=== PATIENT | male | born 1965 | race Caucasian/White ===

== ENCOUNTER 2016-09-22 19:46 | Emergency (ER) | payer OTHER ==
[~2016-09-22] VITALS: Ht 185.4 cm; Wt 96.2 kg
[2016-09-22 19:54] VITALS: TEMP 36.8; Ht 185.4 cm; Wt 96.2 kg
[2016-09-22] MEDS ORDERED: ASPI81TA28 PO (20:33)
[2016-09-22] MEDS ORDERED: MULT-506 PO (20:33)
[2016-09-22 20:40] LABS: HEMATOCRIT 49.7 % (42-52); MEAN CELL VOLUME 84.1 fL (80-100); MEAN CORPUSCULAR HEMOGLOBIN 29.6 pg (25-34); MEAN CORPUSCULAR HGB CONC 35.2 g/dl (32-36); MEAN PLATELET VOLUME 10.4 fL (7.4-10.4); PLATELET COUNT 203 K/uL (130-400); RED BLOOD COUNT 5.91 M/uL (4.7-6.1); WHITE BLOOD COUNT 9.22 K/uL (4.8-10.8)
[2016-09-22 20:41] VITALS: O2SAT 100
[2016-09-22 20:50] LABS: PARTIAL THROMBOPLASTIN RATIO 1.1; PROTHROMBIN TIME (PATIENT) 10.7 SECONDS (9.0-12.0)
--- NOTE | 2016-09-22 21:02 | DIAGNOSTIC IMAGING REPORT ---
CHEST ONE VIEW PORTABLE CLINICAL HISTORY: chest pressure CHEST HEAVINESS, FATIGUE. LIGHTHEADEDNESS. COMPARISON STUDY: No previous studies for comparison. FINDINGS: The heart is mildly enlarged. A prosthetic valve is visualized. There is no failure. There is no focal pulmonary consolidation. There are no pleural effusions.[ IMPRESSION: No active disease in the chest. Electronically signed by: Jason De Jesus M.D. 09/22/2016 9:01 PM Dictated Date/Time: 09/22/2016 9:01 PM
[2016-09-22 21:38] LABS: ALB/GLOB RATIO 1.3 (0.9-2); ALKALINE PHOSPHATASE 78 U/L (45-117); ALT/SGPT 58 U/L (12-78); AST/SGOT 37 U/L (15-37); BLOOD UREA NITROGEN 15 mg/dl (7-18); BUN/CREATININE RATIO 13.3 (10-20); CALCIUM 8.8 mg/dl (8.5-10.1); CARBON DIOXIDE 27 mmol/L (21-32); CHLORIDE 107 mmol/L (98-107); CKMB/CK RATIO 0.8 (0-3.0); GLUCOSE 95 mg/dl (70-99); POTASSIUM 4.2 mmol/L (3.5-5.1); SODIUM 143 mmol/L (136-145)
[2016-09-23 00:19] VITALS: BP 166/89; PULSE 79; O2SAT 99
--- NOTE | 2016-09-23 01:09 | EMERGENCY ROOM VISIT NOTE ---
History Report prepared by Charito: Tre Rollins Under the Supervision of: Dr. Pedro Luis Villarreal D.O. First contact with patient: 20:48 Chief Complaint: CARDIAC ASSESSMENT Stated Complaint: LOSS OF ENERGY,CHEST HEAVINESS,LIGHTHEAD 4DAYS AGO Nursing Triage Summary: pt reports Mon. while sitting at desk had an episode of light headed dizziness this passed. then during the week I have had intermittent chest tightness or spasm with dizziness , denies NV or sob reports hx of mitral valve repair 5 yrs ago History of Present Illness The patient is a 50 year old male who presents to the Emergency Room with complaints of intermittent weakness beginning 4 days ago. The patient states that he was sitting at his desk at home and became lightheaded suddenly with heavy legs. He reports that he also experiences intermittent fatigue, chest heaviness, left sided muscle spasms, and tingling sensation in this fingers. The patient notes that he has only experienced the lightheadedness and heavy legs once. He reports that he was symptom free yesterday. The patient states that exertion does not change his discomfort and deep breathing helps. He notes that he typically experiences his discomfort when he thinks about it and gets stressed out. The patient denies jaw and arm pain, shortness of breath, diaphoresis, and nausea. He also denies having DM, hypertension, heart disease, coronary disease, recent surgery, long trips, cyanosis legs, previous blood, hemoptysis, history cancer and smoking. 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 Source of History: patient Onset: 4 days ago Position: other (global) Quality: other (weakness) Timing: intermittent Modifying Factors (Relieving): breathing (deeply) Associated Symptoms: + fatigue, No diaphoresis, No SOB, No nausea Note: Associated symptoms: chest heaviness, left sided muscle spasms, and tingling sensation in this fingers. The patient denies jaw and arm pain and leg swelling Review of Systems See HPI for pertinent positives & negatives. A total of 10 systems reviewed and were otherwise negative. Family History Patient reports no known family medical history. Social History Smoking Status: Current Some Day Smoker Marital Status: single Current/Historical Medications Scheduled Aspirin (Aspirin Ec), 81 MG PO DAILY Multivitamin (Multivitamin), 1 TAB PO DAILY Allergies Coded Allergies: No Known Allergies (Unverified , 09/22/16) Physical Exam Vital Signs Date Time Temp Pulse Resp B/P (MAP) Pulse Ox O2 Delivery O2 Flow Rate FiO2 09/23/16 00:19 79 18 166/89 99 09/22/16 23:24 74 19 137/93 100 Room Air 09/22/16 22:07 141/88 100 09/22/16 22:00 77 16 09/22/16 20:45 84 09/22/16 20:41 100 Room Air 09/22/16 20:41 100 Room Air 09/22/16 20:10 100 Room Air 09/22/16 19:54 36.8 90 18 154/96 100 Room Air Physical Exam GENERAL: alert, anxious appearing sitting up in bed, disheveled EYE EXAM: normal conjunctiva OROPHARYNX: no exudate, no erythema, lips, buccal mucosa, and tongue normal and mucous membranes are moist NECK: supple, no nuchal rigidity, no adenopathy, non-tender LUNGS: Clear to auscultation. Normal chest wall mechanics HEART: Systolic ejection murmur, S1 normal and S2 normal ABDOMEN: abdomen soft, non-tender, normo-active bowel sounds, no masses, no rebound or guarding. BACK: Back is symmetrical on inspection and there is no deformity, no midline tenderness, no CVA tenderness. SKIN: no rashes and no bruising UPPER EXTREMITIES: upper extremities are grossly normal. Radial pulses equal bilaterally LOWER EXTREMITIES: No pitting edema. Calves non-tender and equal bilaterally NEURO EXAM: Normal sensorium, cranial nerves II-XII intact, normal speech, no weakness of arms, no weakness of legs. Medical Decision & Procedures ER Provider Diagnostic Interpretation: Radiology results as stated below per my review and the radiologist's interpretation: CHEST ONE VIEW PORTABLE CLINICAL HISTORY: chest pressure CHEST HEAVINESS, FATIGUE. LIGHTHEADEDNESS. COMPARISON STUDY: No previous studies for comparison. FINDINGS: The heart is mildly enlarged. A prosthetic valve is visualized. There is no failure. There is no focal pulmonary consolidation. There are no pleural effusions.[ IMPRESSION: No active disease in the chest. Electronically signed by: Jason De Jesus M.D. 09/22/2016 9:01 PM Dictated Date/Time: 09/22/2016 9:01 PM Laboratory Results 09/22/16 20:30 09/22/16 20:30 Test 09/22/16 20:30 09/22/16 20:37 09/22/16 23:29 Red Blood Count 5.91 M/uL (4.7-6.1) Mean Corpuscular Volume 84.1 fL (80-100) Mean Corpuscular Hemoglobin 29.6 pg (25-34) Mean Corpuscular Hemoglobin Concent 35.2 g/dl (32-36) RDW Standard Deviation 40.5 fL (36.4-46.3) RDW Coefficient of Variation 13.3 % (11.5-14.5) Mean Platelet Volume 10.4 fL (7.4-10.4) Prothrombin Time 10.7 SECONDS (9.0-12.0) Prothromb Time International Ratio 1.0 (0.9-1.1) Activated Partial Thromboplast Time 27.5 SECONDS (21.0-31.0) Partial Thromboplastin Ratio 1.1 D-Dimer < 190 ug/L FEU (0-500) Anion Gap 9.0 mmol/L (3-11) Est Creatinine Clear Calc Drug Dose 99.3 ml/min Estimated GFR () 90.9 Estimated GFR (Non- 78.4 BUN/Creatinine Ratio 13.3 (10-20) Calcium Level 8.8 mg/dl (8.5-10.1) Total Bilirubin 0.8 mg/dl (0.2-1) Aspartate Amino Transf (AST/SGOT) 37 U/L (15-37) Alanine Aminotransferase (ALT/SGPT) 58 U/L (12-78) Alkaline Phosphatase 78 U/L (45-117) Total Creatine Kinase 88 U/L (39-308) Creatine Kinase MB 0.7 ng/ml (0.5-3.6) Creatine Kinase MB Ratio 0.8 (0-3.0) Total Protein 7.9 gm/dl (6.4-8.2) Albumin 4.5 gm/dl (3.4-5.0) Globulin 3.4 gm/dl (2.5-4.0) Albumin/Globulin Ratio 1.3 (0.9-2) Bedside Troponin I < 0.030 ng/ml (0-0.045) Troponin I < 0.015 ng/ml (0-0.045) Laboratory results per my review. ECG Indication: weakness Rate (beats per minute): 89 Rhythm: sinus rhythm Findings: no ectopy, other (early R-wave progression) Comparison ECG Date: no prior available ED Course ED COURSE: Vital signs were reviewed and showed hypertension The patients medical record was reviewed The above diagnostic studies were performed and reviewed. ED treatments and interventions as stated above. 2057: The patient was evaluated in room C04. A complete history and physical examination was performed. 2251: I reevaluated the patient. He could not make a decision to receive further treatment as an in patient or follow up as an outpatient. I explained the risks and benefits for both options. I also discussed that his heart score was less than 3. 0000: Upon reevaluation, the patient is resting. I discussed my findings with the patient and he understands and agrees with the treatment plan. I discussed that he is at low risk by his heart score again. He preferred to follow up as an outpatient. Based on the patients age, coexisting illnesses, exam and lab findings the decision to treat as an outpatient was made. The patient remained stable while under my care. The patient appeared well at the time of discharge. Medical Decision Differential diagnoses includes but is not limited to acute coronary syndrome, myocardial infarction, pericarditis, pulmonary embolus, aortic dissection, pneumonia, pneumothorax, musculoskeletal, shingles, esophageal. Patient is a 50-year-old male who presents the ER with intermittent chest pain over the past week. Pain is not worsened with exertion. He has no shortness of breath, arm or jaw pain. Patient denies any PE risk factors. He has no risk factors for CAD. He does have a history of a mitral valve repair. CBC was unremarkable. Troponins were negative for over 3 hours with pain that has been present over the past 8 hours. D-dimer was negative. This is not consistent with dissection. EKG was unremarkable. Chest x-ray was normal. Patient per heart score is a low risk. I informed him of this. He preferred to be discharged to follow-up as an outpatient following informed care/decision making. Explained the risk and benefits of admission. Patient has his pulse at bedside during the decision making process. Patient requests to be discharged and will follow-up with his PCP on Sunday. Discussed with care management and they will help schedule an appointment on Sunday for him. Discussed with Pt concerning signs and symptoms to watch out for. Pt was instructed to follow up with their PCP and discussed with the patient their option to return to the ED at anytime for persistent or worsening symptoms. The appropriate anticipatory guidance and out-patient management, including indications for return to the emergency department, were explained at length to the patient and understood. Impression Primary Impression: Chest pain Scribe Attestation The scribe's documentation has been prepared under my direction and personally reviewed by me in its entirety. I confirm that the note above accurately reflects all work, treatment, procedures, and medical decision making performed by me. Departure Information Dispostion Home / Self-Care Referrals Neftali Vieyra M.D. (PCP) Forms IMPORTANT VISIT INFORMATION Patient Instructions Chest Pain - [facility], My [facility] Additional Instructions Please follow up with your primary care doctor with in the next 24 hours. Any worsening of your symptoms, please return to the ED immediately. This includes chest pain, shortness of breath, on pain, jaw pain, diaphoresis, or any other concerning signs or symptoms from your standpoint. Problem Qualifiers Primary Impression: Chest pain Chest pain type: unspecified Qualified Codes: R07.9 - Chest pain, unspecified
== END 2016-09-23 00:19 | disposition home or self-care (01) ==
LOC: C.EDB 19:47 → C.EDC 09-23 00:19
DX: R07.9 Chest pain, unspecified (principal); R42 Dizziness and giddiness; F17.200 Nicotine dependence, unspecified, uncomplicated; Z79.82 Long term (current) use of aspirin; Z98.890 Other specified postprocedural states

== ENCOUNTER → 2016-09-25 | Outpatient (CLI) | payer OTHER ==
[~2016-09-25] MED LIST: ASPI81TA28 PO; CHOL1000 PO; COEN100C15 PO; MISC1CAP60 PO; MULT-506 PO; MULT-513 PO; MULT-704 PO; OMEG10007 PO
[2016-09-25 14:03] LABS: ESTIMATED AVERAGE GLUCOSE 105 mg/dl; HA1C FLAG Normal (Normal)
[2016-09-25 14:34] LABS: LYME DISEASE AB IGG NEG (NEG)
[2016-09-25 14:37] LABS: LYME DISEASE AB IGM NEG (NEG)
== END | disposition home or self-care (01) ==
LOC: C.LAB1850 12:26
PROVIDERS: ATTEND Internal Medicine
DX: Z13.1 Encounter for screening for diabetes mellitus (principal); R53.83 Other fatigue

== ENCOUNTER 2016-12-25 20:45 | Emergency (ER) | payer OTHER ==
[~2016-12-25] VITALS: Ht 185.4 cm; Wt 91.7 kg
[~2016-12-25 20:45] MED LIST changes: -CHOL1000 PO; -COEN100C15 PO; -MISC1CAP60 PO; -MULT-513 PO; -MULT-704 PO; -OMEG10007 PO
[2016-12-25 20:49] VITALS: TEMP 37.2; Ht 185.4 cm; Wt 91.7 kg
[2016-12-25 21:02] VITALS: O2SAT 99
--- NOTE | 2016-12-25 21:16 | EMERGENCY ROOM VISIT NOTE ---
History Report prepared by Charito: Jeromy Meeks Under the Supervision of: Dr. Neftali Ramos D.O. First contact with patient: 20:54 Chief Complaint: CHEST PAIN Stated Complaint: CHEST DISCOMFORT,TIREDNESS,LIGHTHEADED History of Present Illness The patient is a 51 year old male who presents to the Emergency Room with complaints of intermittent chest pain that started six days. He describes the pain as a pressure and rates his pain as a 1/10 in severity. The patient sates that the pain is sometimes on the left side and other times on the right. He states that the pain is mostly in the middle. The patient states that at time, sleeping helps alleviate his pressure. He states that the pain was mild yesterday and two days ago, but reports that today the pain was moderate. The patient states that he had multiple medical discussions that triggered stress. He states that he does not wake up with the chest pain, but states that throughout the day the pain returns. The patient also reports that he has had three episodes of lightheadedness that comes and goes. He states that the pain is resolved now. He admits that he was in the ED in September where he admits he had lab work done, but denies a stress test. The patient states that he followed up with his PCP. He states that the pain lasted for 7-10 days but resolved. The patient states that around this time, he had increased stress from moving houses. He states that in the first week of November, the symptoms returned and lasted for almost a week again. He admits to a mitral valve repair in 2011 and reports that he had a cardiac catheterization done. The patient states that he follows up with Physical Science Technician and states that he has an echo in the beginning of January. He states that he drinks about two drinks per month and three cigars per year. The patient denies edema to his lower extremities, weight loss, SOB, and abdominal pain. Source of History: patient Onset: six days ago Position: chest Symptom Intensity: 1/10 Quality: pressure Timing: intermittent Modifying Factors (Worsening): other (sleep) Associated Symptoms: No SOB, No abdominal pain Review of Systems See HPI for pertinent positives & negatives. A total of 10 systems reviewed and were otherwise negative. Past Medical & Surgical Surgical Problems: (1) History of mitral valve repair Family History Cancer Heart disease Social History Smoking Status: Light Tobacco Smoker Smokeless Tobacco Use: No Alcohol Use: occasionally Drug Use: none Marital Status: single Housing Status: lives with roommate Occupation Status: employed Current/Historical Medications Scheduled Aspirin (Aspirin Ec), 81 MG PO DAILY Cholecalciferol (Vitamin D3), Unknown Dose PO DAILY Coenzyme Q10 (Ubidecarenone) (Co Q10), 100 MG PO DAILY Fish Oil ([place]-3), 2 CAP PO BID Misc Natural Products ([place]), 2 CAP PO BID Multiple Vitamins W/ Iron (Chlorella), 2 CAP PO BID Multivitamins/Minerals (Mvi With Minerals), 1 TAB PO BID Allergies Coded Allergies: No Known Allergies (Unverified , 09/22/16) Physical Exam Vital Signs Date Time Temp Pulse Resp B/P (MAP) Pulse Ox O2 Delivery O2 Flow Rate FiO2 12/25/16 23:23 78 16 137/85 97 Room Air 12/25/16 21:51 78 16 158/98 98 Room Air 12/25/16 21:10 87 12/25/16 21:02 99 Room Air 12/25/16 20:58 98 Room Air 12/25/16 20:49 37.2 80 20 154/100 98 Room Air Physical Exam GENERAL: Patient is awake, alert, and in no acute distress. Patient is resting comfortably and showing no signs of anxiety EYES: The conjunctivae are clear. The pupils are round and reactive. EARS, NOSE, MOUTH AND THROAT: The nose is without any evidence of any deformity. Mucous membranes are moist tongue is midline NECK: The neck is nontender and supple. RESPIRATORY: Normal respiratory effort is noted there is no evidence of wheezing rhonchi or rales CARDIOVASCULAR: Regular rate and rhythm noted there no murmurs rubs or gallops normal S1 normal S2 GASTROINTESTINAL: The abdomen is soft. Bowel sounds are present in all quadrants. Abdomen is nontender MUSCULOSKELETAL/EXTREMITIES: There is no evidence of gross deformity full range of motion is noted in the hips and shoulders SKIN: There is no obvious evidence of any rash. There are no petechiae, pallor or cyanosis noted. NEUROLOGIC: Patient is awake alert and oriented x3. Medical Decision & Procedures ER Provider Diagnostic Interpretation: X-ray results as stated below per interpretation by me and the radiologist. CHEST ONE VIEW PORTABLE HISTORY: Atypical CHEST PAIN COMPARISON: Chest 09/22/2016. FINDINGS: The lungs are clear. Cardiac silhouette is normal in size. No pleural effusions. No pneumothorax. A cardiac valve prosthesis is again noted. IMPRESSION: No acute process. Electronically signed by: Phillip Llamas M.D. 12/25/2016 10:01 PM Dictated Date/Time: 12/25/2016 9:59 PM Laboratory Results 12/25/16 21:10 Red Blood Count 5.51, Mean Corpuscular Volume 84.4, Mean Corpuscular Hemoglobin 29.4, Mean Corpuscular Hemoglobin Concent 34.8, Mean Platelet Volume 10.4, Neutrophils (%) (Auto) 62.1, Lymphocytes (%) (Auto) 30.4, Monocytes (%) (Auto) 5.1, Eosinophils (%) (Auto) 1.8, Basophils (%) (Auto) 0.4, Neutrophils # (Auto) 7.09, Lymphocytes # (Auto) 3.47, Monocytes # (Auto) 0.58, Eosinophils # (Auto) 0.20, Basophils # (Auto) 0.05 12/25/16 21:10 Test 12/25/16 21:10 White Blood Count 11.41 K/uL (4.8-10.8) Red Blood Count 5.51 M/uL (4.7-6.1) Hemoglobin 16.2 g/dL (14.0-18.0) Hematocrit 46.5 % (42-52) Mean Corpuscular Volume 84.4 fL (80-100) Mean Corpuscular Hemoglobin 29.4 pg (25-34) Mean Corpuscular Hemoglobin Concent 34.8 g/dl (32-36) Platelet Count 228 K/uL (130-400) Mean Platelet Volume 10.4 fL (7.4-10.4) Neutrophils (%) (Auto) 62.1 % Lymphocytes (%) (Auto) 30.4 % Monocytes (%) (Auto) 5.1 % Eosinophils (%) (Auto) 1.8 % Basophils (%) (Auto) 0.4 % Neutrophils # (Auto) 7.09 K/uL (1.4-6.5) Lymphocytes # (Auto) 3.47 K/uL (1.2-3.4) Monocytes # (Auto) 0.58 K/uL (0.11-0.59) Eosinophils # (Auto) 0.20 K/uL (0-0.5) Basophils # (Auto) 0.05 K/uL (0-0.2) RDW Standard Deviation 40.3 fL (36.4-46.3) RDW Coefficient of Variation 13.2 % (11.5-14.5) Immature Granulocyte % (Auto) 0.2 % Immature Granulocyte # (Auto) 0.02 K/uL (0.00-0.02) Prothrombin Time 10.7 SECONDS (9.0-12.0) Prothromb Time International Ratio 1.0 (0.9-1.1) Activated Partial Thromboplast Time 26.6 SECONDS (21.0-31.0) Partial Thromboplastin Ratio 1.0 Anion Gap 10.0 mmol/L (3-11) Est Creatinine Clear Calc Drug Dose 100.9 ml/min Estimated GFR () 102.5 Estimated GFR (Non- 88.4 BUN/Creatinine Ratio 15.2 (10-20) Calcium Level 9.8 mg/dl (8.5-10.1) Total Bilirubin 1.2 mg/dl (0.2-1) Direct Bilirubin 0.2 mg/dl (0-0.2) Aspartate Amino Transf (AST/SGOT) 48 U/L (15-37) Alanine Aminotransferase (ALT/SGPT) 46 U/L (12-78) Alkaline Phosphatase 65 U/L (45-117) Total Creatine Kinase 104 U/L (39-308) Creatine Kinase MB 0.8 ng/ml (0.5-3.6) Creatine Kinase MB Ratio 0.8 (0-3.0) Troponin I < 0.015 ng/ml (0-0.045) Total Protein 7.7 gm/dl (6.4-8.2) Albumin 4.4 gm/dl (3.4-5.0) Lipase 291 U/L (73-393) Laboratory results per my review. ECG Indication: chest pain Rate (beats per minute): 89 Rhythm: normal sinus Findings: no acute ischemic change, no ectopy Comparison ECG Date: 12/22/16 Change: no significant change ED Course 2056: The patient was evaluated in room C06. A complete history and physical examination were performed. 2303: Upon reevaluation, the patient is doing well. I discussed the results and treatment plan with the patient. He verbalized agreement of the treatment plan. The patient was discharged home. Medical Decision The differential diagnosis includes: etiologies such as cardiac ischemia, aortic dissection, pulmonary embolism, pneumonia, pneumothorax, musculoskeletal , infections, pericarditis, myocarditis, esophageal rupture, gastrointestinal, as well as others were entertained. Nursing notes reviewed. Patient's previous electronic medical records reviewed. The patient is a 51-year-old male who presented to the emergency department for an evaluation of chest pain. The patient was seen previously in our facility for similar complaints. He had a procedure to fix a mitral valve problem in the past and had a cardiac catheterization at that time according to him. The patient has had ongoing symptoms throughout the day. His EKG shows no acute changes from previous in his cardiac biomarkers are negative. I discussed the patient's laboratory and radiographic studies with him. I also discussed the limitations of the emergency department workup for chest pain with him. He was encouraged to rest and avoid any strenuous activity. He was encouraged to call his family doctor in the morning to schedule follow-up appointment and discuss the possibility that he may need further studies or possibly a provocative test such as a stress test to further evaluate the cause symptoms. Otherwise she was encouraged to return the emergency apartment immediately if symptoms change worsen or the need arises. Medication Reconcilliation Current Medication List: was personally reviewed by me Blood Pressure Screening Patient's blood pressure: Elevated blood pressure Blood pressure disposition: Elevated BP felt to be situational Impression Primary Impression: Chest pain Scribe Attestation The scribe's documentation has been prepared under my direction and personally reviewed by me in its entirety. I confirm that the note above accurately reflects all work, treatment, procedures, and medical decision making performed by me. Departure Information Dispostion Home / Self-Care Referrals Neftali Vieyra M.D. (PCP) Forms Call Back Authorization, HOME CARE DOCUMENTATION FORM, IMPORTANT VISIT INFORMATION Patient Instructions ED Chest Pain Atypical [facility], My [facility] Additional Instructions Call your family in the morning to schedule a follow-up appointment. Rest and avoid any strenuous activity. Continue all medications as prescribed. Return to the emergency Department immediately if symptoms change or need arises. Problem Qualifiers Primary Impression: Chest pain Chest pain type: unspecified Qualified Codes: R07.9 - Chest pain, unspecified
[2016-12-25 21:42] LABS: BASO % 0.4 %; BASO ABS # 0.05 K/uL (0-0.2); COMPLETE YES; EOS % 1.8 %; HEMATOCRIT 46.5 % (42-52); IG% 0.2 %; LYMPH % 30.4 %; LYMPH ABS # 3.47 K/uL (1.2-3.4); MEAN CELL VOLUME 84.4 fL (80-100); MEAN CORPUSCULAR HEMOGLOBIN 29.4 pg (25-34); MEAN CORPUSCULAR HGB CONC 34.8 g/dl (32-36); MEAN PLATELET VOLUME 10.4 fL (7.4-10.4); MONO % 5.1 %; NEUT % 62.1 %; PLATELET COUNT 228 K/uL (130-400); RED BLOOD COUNT 5.51 M/uL (4.7-6.1); WHITE BLOOD COUNT 11.41 K/uL (4.8-10.8)
[2016-12-25] MEDS ORDERED: MULT-513 PO (21:51)
[2016-12-25] MEDS ORDERED: COEN100C15 PO (21:52)
[2016-12-25] MEDS ORDERED: MULT-704 PO (21:53)
[2016-12-25] MEDS ORDERED: CHOL1000 PO (21:54)
[2016-12-25] MEDS ORDERED: MISC1CAP60 PO (21:55)
[2016-12-25 21:57] LABS: PROTHROMBIN TIME (PATIENT) 10.7 SECONDS (9.0-12.0)
[2016-12-25] MEDS ORDERED: OMEG10007 PO (21:57)
--- NOTE | 2016-12-25 22:02 | DIAGNOSTIC IMAGING REPORT ---
CHEST ONE VIEW PORTABLE HISTORY: Atypical CHEST PAIN COMPARISON: Chest 09/22/2016. FINDINGS: The lungs are clear. Cardiac silhouette is normal in size. No pleural effusions. No pneumothorax. A cardiac valve prosthesis is again noted. IMPRESSION: No acute process. Electronically signed by: Phillip Llamas M.D. 12/25/2016 10:01 PM Dictated Date/Time: 12/25/2016 9:59 PM
[2016-12-25 22:04] LABS: ALT/SGPT 46 U/L (12-78); BLOOD UREA NITROGEN 15 mg/dl (7-18); BUN/CREATININE RATIO 15.2 (10-20); CALCIUM 9.8 mg/dl (8.5-10.1); CARBON DIOXIDE 23 mmol/L (21-32); CHLORIDE 106 mmol/L (98-107); CREATININE 0.99 mg/dl (0.60-1.40); GLUCOSE 92 mg/dl (70-99); POTASSIUM 3.4 mmol/L (3.5-5.1); SODIUM 139 mmol/L (136-145)
[2016-12-25 22:09] LABS: ALKALINE PHOSPHATASE 65 U/L (45-117); AST/SGOT 48 U/L (15-37); CKMB/CK RATIO 0.8 (0-3.0)
[2016-12-25 23:23] VITALS: BP 137/85; PULSE 78; O2SAT 97
== END 2016-12-25 23:28 | disposition home or self-care (01) ==
LOC: C.EDB 20:47 → C.EDC 23:28
DX: R07.9 Chest pain, unspecified (principal); Z80.9 Family history of malignant neoplasm, unspecified; F17.210 Nicotine dependence, cigarettes, uncomplicated; Z79.82 Long term (current) use of aspirin; Z79.899 Other long term (current) drug therapy

== ENCOUNTER → 2017-01-04 | Outpatient (CLI) | payer OTHER ==
[~2017-01-04] MED LIST changes: +CHOL1000 PO; +COEN100C15 PO; +MISC1CAP60 PO; -MULT-506 PO; +MULT-513 PO; +MULT-704 PO; +OMEG10007 PO
[2017-01-04 09:49] LABS: ALT/SGPT 34 U/L (12-78); AST/SGOT 30 U/L (15-37); BLOOD UREA NITROGEN 12 mg/dl (7-18); BUN/CREATININE RATIO 12.2 (10-20); CALCIUM 9.1 mg/dl (8.5-10.1); CARBON DIOXIDE 31 mmol/L (21-32); CHLORIDE 107 mmol/L (98-107); GLUCOSE 94 mg/dl (70-99); POTASSIUM 3.9 mmol/L (3.5-5.1); SODIUM 141 mmol/L (136-145)
[2017-01-04 09:53] LABS: ALB/GLOB RATIO 1.2 (0.9-2); ALKALINE PHOSPHATASE 65 U/L (45-117); CHOLESTEROL 159 mg/dl (0-200); CHOLESTEROL/HDL RATIO 4.1; HDL CHOLESTEROL 39 mg/dl; LDL CHOLESTEROL CALCULATED 92 mg/dl; TRIGLYCERIDES 138 mg/dl (0-150); VERY LOW DENSITY LIPOPROT CALC 28 mg/dl
== END | disposition home or self-care (01) ==
LOC: C.LAB1850 08:20
PROVIDERS: ATTEND Internal Medicine
DX: Z00.00 Encounter for general adult medical examination without abnormal findings (principal); R07.89 Other chest pain; E78.5 Hyperlipidemia, unspecified; E55.9 Vitamin D deficiency, unspecified; R74.8 Abnormal levels of other serum enzymes; R53.83 Other fatigue; Z23 Encounter for immunization

== ENCOUNTER → 2017-01-10 | Outpatient (CLI) | payer OTHER ==
--- NOTE | 2017-01-10 14:36 | EXERCISE STRESS ECHO ---
*NOTICE TO RECEIVING LIBERTARIAN AGENCY This information is strictly Confidential and protected under [place] law. [place] law prohibits you from making any further disclosure of this information unless further disclosure is expressly permitted by the written consent of the person to whom it pertains or is authorized by law. A general authorization for the release of medical or other information is not sufficient for this purpose. Hospital accepts no responsibility if the information is made available to any other person, INCLUDING THE PATIENT. Interpretation Summary * Name: SANFORD RHODES Study Date: 01/10/2017 10:48 AM BP: 135/84 mmHg * Patient Location: [facility] HR: 90 * : 1965 (M/d/yyyy) Gender: Male * Age: 51 yrs Ethnicity: CA Weight: 202 lb * Ordering Physician: Christopher. Perera MD * Referring Physician: Osman Perera * Performed By: Venessa Lau * * Reason For Study: CHEST PAIN/ TIGHTNESS * -- Conclusions -- * 1. Negative exercise stress echo for ischemia at 100% MPHR. * 2. Negative exercise ECG for ischemia. * 3. Above avg. functional capacity. Exercised 10:06 min, acheived 11.9 METS. No chest pain. Normal hemodynamic response to exercise. * 4. LVEF 60-65%. Mild concentric LVH. Grade I diastolic dysfunction. Normal RV size and function. No significant valvular pathology. * 5. No prior studies for comparison. Procedure Details * TST, CPT #[id number] * ECHO DOPPLER, CPT #[id number] * ECHO COLOR FLOW, CPT #[id number] Left Ventricle * The left ventricle is grossly normal size. * There is mild concentric left ventricular hypertrophy. * Ejection Fraction = 60-65%. * Resting wall motion: Normal. Stress wall motion: Appropriate increase in Left ventricular systolic function and decrease in cavity size. No stress induced segmental wall motion abnormalities. Right Ventricle * The right ventricle is grossly normal size. * The right ventricular systolic function is normal as assessed by tricuspid annular plane systolic excursion (TAPSE) (normal >1.5 cm). Atria * The left atrium is moderately dilated. * Right atrial size is normal. * No ASD detected; PFO is not assessed. Mitral Valve * There is moderate mitral annular calcification. * There is no mitral valve stenosis. * There is trace mitral regurgitation. Tricuspid Valve * The tricuspid valve is not well visualized. * Significant tricuspid regurgitation is absent. Aortic Valve * The aortic valve opens well. * The aortic valve is trileaflet. * No hemodynamically significant valvular aortic stenosis. * Trace aortic regurgitation. Pulmonic Valve * The pulmonary valve is inadequately visualized, but the Doppler data is adequate for interpretation. * Trace pulmonic valvular regurgitation. Great Vessels * Ascending aorta borderline dilated (3.8 cm). Pericardium * There is no pericardial effusion. Stress Parameters * The baseline ECG displays normal sinus rhythm. * Stress ECG: No ST changes. No arrhythmias. * The stress portion of this study was personally supervised by the undersigned interpreting physician. * Rest heart rate was '90' BPM. * Rest blood pressure was '135/84' * Maximum heart rate achieved was 171 bpm. * Maximum heart rate was 100 % of maximum age-predicted heart rate. * Maximum blood pressure was '213/48' * Total exercise time was '10:06' * Maximum exercise MET level achieved was '11.90' METS * Maximum treadmill speed was '4.20' miles per hour. * Maximum treadmill elevation was '16.00'% grade. * Exercise was terminated due to 'fatigue' * The patient exhibited fatigue during exercise. * Normal blood pressure response to exercise. * Target heart rate achieved. Left Ventricular Diastolic Function * Grade I diastolic dysfunction, (abnormal relaxation pattern). MMode 2D Measurements and Calculations IVSd 1.5 cm IVSs 2.2 cm LVIDd 5.1 cm LVIDs 3.3 cm LVPWd 1.3 cm LVPWs 2.0 cm IVS/LVPW 1.2 FS 34.3 % EDV(Teich) 123.4 ml ESV(Teich) 45.7 ml EF(Teich) 63.0 % EDV(cubed) 132.1 ml ESV(cubed) 37.5 ml EF(cubed) 71.6 % % IVS thick 48.6 % % LVPW thick 54.9 % LV mass(C)d 287.7 grams LV mass(C)s 316.2 grams CO(Teich) 6.5 l/min SV(Teich) 77.8 ml CO(cubed) 7.9 l/min SV(cubed) 94.6 ml ACS 2.3 cm LA dimension 3.6 cm asc Aorta Diam 3.4 cm LVOT diam 2.2 cm LVOT area 3.9 cm\S\2 LVAd ap4 36.4 cm\S\2 LVLd ap4 9.6 cm EDV(MOD-sp4) 117.0 ml LVAs ap4 20.6 cm\S\2 LVLs ap4 8.4 cm ESV(MOD-sp4) 44.3 ml EF(MOD-sp4) 62.1 % LVAd ap2 35.1 cm\S\2 LVLd ap2 9.3 cm EDV(MOD-sp2) 109.0 ml LVAs ap2 17.4 cm\S\2 LVLs ap2 6.9 cm ESV(MOD-sp2) 41.4 ml EF(MOD-sp2) 62.0 % CO(MOD-sp4) 6.1 l/min SV(MOD-sp4) 72.7 ml CO(MOD-sp2) 5.7 l/min SV(MOD-sp2) 67.6 ml Doppler Measurements and Calculations MV E max ron 88.3 cm/sec MV A max ron 111.1 cm/sec MV E/A 0.79 MV dec time 0.17 sec Ao V2 max 83.0 cm/sec Ao max PG 2.8 mmHg Ao max PG (full) 0.35 mmHg FRANCISCO(V,A) 3.7 cm\S\2 FRANCISCO(V,D) 3.7 cm\S\2 LV V1 max PG 2.4 mmHg LV V1 max 77.6 cm/sec MR max ron 378.6 cm/sec MR max PG 57.4 mmHg PA V2 max 50.4 cm/sec PA max PG 1.0 mmHg PI end-d ron 134.8 cm/sec
== END | disposition home or self-care (01) ==
LOC: C.CPL 10:29
PROVIDERS: ATTEND Internal Medicine Clinical Cardiac Electrophysiology
DX: L98.9 Disorder of the skin and subcutaneous tissue, unspecified (principal); R07.89 Other chest pain